=== PATIENT | female | born 2000 | race Caucasian/White ===

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

== ENCOUNTER 2024-08-13 17:00 | Outpatient (RCR) | payer BC, SELFPAY ==
--- NOTE | 2024-07-24 13:50 | HP.OTEVAL_ITS ---
Patient's Visit Information Visit Information Visit Information: JUAQUIN TOLEDO is a 24 year old F, referred to Occupational Therapy by Dr. Rigo Slater MD, with a diagnosis of left hand stiffness. Date of Evaluation: 07/24/24 Occupational Therapist: Elaine Gregorio, JENIFERR/Mai, CHT Subjective Subjective: This 24 year old female was seen for OT eval with dx of left hand stiffness / non- displaced fx of of second metacarpal pt states DOI was on left hand DOI 07/05/24. Kicked in karate. 07/17/24 X-ray at ED [facility] and she states she did see a ortho person but wanted a 2nd opinion. Came to [facility] to see Dr. Salter as she had increase pain in her forearm. pt happy she is cleared to gokul tape and start moving her fingers. pt states she has been limited with all ADLs and IADls since her date of injury. Pain left hand: Current Pain Intensity: 1 Pain Intensity Range: 1 and 4 ROM MP: right IF 0/85 left 0/50 MF 0/55 PIP: right IF 0/115 left 0/40 left MF 0/35 ROM Comments: pt demo with a decrease in left IF and MF MCP flexion and PIP flexion bruising still purple -green in color Edema Proximal Phalanx: slight Sensation Sensation Comments: denies Quick DASH-Disab of Arm,Shoulder& Hand Quick DASH Score: 35.0000 Goals Goal:ROM equal to unaffected hand: Yes Goal:Power Electronics Engineer/Pinch strength at least 75% of unaffected hand: Yes Comment: will not initiate until week 6 post injury Goal:No pain with affected hand use: Yes Goal:Full use of affected hand in daily activities including work: Yes Other Goal: gokul tape: pt will demo understanding of using gokul tape to IF and MF by end of 1st session. Rehabilitation General Assessment: pt arrives to OT 2 weeks and 5 days since her DOI. pt demo with limited left IF and MF ROM, bruising and slight finger swelling. Pts is limited with all ADLs and IADLs as she is left hand dominate. Pt demo need for skilled OT services 1x week for 4 weeks to return pt to her PLOF. Today therapist ed. pt on tendon glide ex ( straight fist, composite fist, and hook fist with digit ext) adding in finger add and abduction. pt demo good motion and gained 15* prior to leaving her session. Pt demo understanding and agree to POC. Rehabilitation Potential: Excellent Anticipated Interventions Anticipated Interventions: A/AAROM/PROM, Edema Control, Triggerpoint Release, Modalities, Ergonomic Education and Education re Diagnosis Visit Plan Frequency: 1-2x /Week Duration: 4 Weeks TEXT: Thank you for the opportunity to evaluate your patient. For Medicare and Medicare HMO plans, please review the plan of care and approve it. It will need to be FAXED BACK to us at [phone] for Medicare purposes. Please let me know if there are questions or concerns regarding this plan of care. Physician Signature: Date:
--- NOTE | 2024-08-13 18:48 | HP.OTREVAL ---
Re-Evaluation Intro: Dr. Rigo Salter MD, It has been my pleasure to treat JUAQUIN TOLEDO over the last 4 visits for left hand stiffness. Please see the progress note below for an update on the occupational therapy plan of care! 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 pt on slow progression into her workouts and hunting- will need cleared from for release to return to contact with shannan Goals Goals Patient Goals: Regain Mobility, Decrease Pain, Decrease Swelling/Stiffness, Use Hand/Wrist/Arm Normally Again and Be More Independent in ADLS Goal:ROM equal to unaffected hand: Yes Goal:Receiving Team Member/Pinch strength at least 75% of unaffected hand: Yes Goal:No pain with affected hand use: Yes Goal:Full use of affected hand in daily activities including work: Yes Other Goal: gokul tape: pt will demo understanding of using gokul tape to IF and MF by end of 1st session. Anticipated Interventions Anticipated Interventions Anticipated Interventions: A/AAROM/PROM, Edema Control, Triggerpoint Release, Modalities, Ergonomic Education and Education re Diagnosis Re-Evaluation Ending Re-evaluation ending: Please do not hesitate to contact me at [phone] by phone or if you have questions or concerns regarding this new plan of care! Sincerely, Elaine Gregorio, OTR/L, CHT
--- NOTE | 2024-11-30 09:02 | HP.OTDCSUM ---
Discharge Summary D/C Summary: It has been my pleasure to treat JUAQUIN TOLEDO under orders from Dr. Rigo Salter MD, for the diagnosis of left hand stiffness for a total of 4 visit(s). Please see the following information for a summary of their discharge status. 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 Plan Plan: pt to return to for x ray ok for d/c from OT as pt has met goals therapist ed. pt on slow progression into her workouts and hunting- will need cleared from for release to return to contact with shannan D/C Information d/c sentence: If there are questions or concerns regarding this patient's occupational therapy, please fell free to call me at [phone]. Thank you for the referral of this patient. Sincerely, Elaine Gregorio, OTR/L, CHT
== END 2024-08-13 19:00 | disposition home or self-care (01) ==
LOC: OT 17:00
PROVIDERS: PCP Pediatrics; Referring Provider Surgery Plastic and Reconstructive Surgery; Visit Provider Surgery Plastic and Reconstructive Surgery
DX: S62.308D Unspecified fracture of other metacarpal bone, subsequent encounter for fracture with routine healing (principal)
CPT/HCPCS: 97110; 97140; 97166; 97530